=== PATIENT | female | born 1995 | race Two or more races ===

== ENCOUNTER → 2019-07-06 | Outpatient (CLI) | payer OTHER | END | disposition home or self-care (01) | LOC: PRENATAL 09:00 | DX: O35.3XX1 Maternal care for (suspected) damage to fetus from viral disease in mother, fetus 1 (principal); O99.212 Obesity complicating pregnancy, second trimester; Z36.89 Encounter for other specified antenatal screening ==

== ENCOUNTER → 2019-08-24 | Outpatient (CLI) | payer OTHER | END | disposition home or self-care (01) | LOC: PRENATAL 10:00 | PROVIDERS: ATTEND Obstetrics & Gynecology Maternal & Fetal Medicine | DX: O26.843 Uterine size-date discrepancy, third trimester (principal); O99.213 Obesity complicating pregnancy, third trimester; Z36.89 Encounter for other specified antenatal screening ==

== ENCOUNTER 2019-10-25 15:24 | Inpatient (IN) | payer OTHER ==
[~2019-10-25] VITALS: Ht 154.9 cm; Wt 3.2 kg
[2019-11-07] MEDS ORDERED: PRENATAL PLUS1 EAC1 PO (06:52)
== END 2019-11-10 11:04 | disposition home or self-care (01) | DRG 785 ==
LOC: OB/GYN 11-07 06:29 → O/R 11-07 06:29 → OB/GYN 11-07 07:00
PROVIDERS: ADMIT Specialist; ATTEND Specialist
PROC: 0UL70ZZ Occlusion of Bilateral Fallopian Tubes, Open Approach (ICD-10-PCS; 2019-11-07)
PROC: 4A1HXCZ Monitoring of Products of Conception, Cardiac Rate, External Approach (ICD-10-PCS; 2019-11-07)
PROC: 10D00Z1 Extraction of Products of Conception, Low, Open Approach (ICD-10-PCS; principal; 2019-11-07 07:00)
DX: O82 Encounter for cesarean delivery without indication (principal); Z3A.39 39 weeks gestation of pregnancy; Z37.0 Single live birth; Z30.2 Encounter for sterilization